=== PATIENT | female | born 1980 | race Caucasian/White ===

== ENCOUNTER 2019-05-23 08:36 | Emergency (ER) | payer MEDICAID ==
[~2019-05-23] VITALS: Ht 162.6 cm; Wt 86.2 kg
[2019-05-23 08:43] VITALS: BP 127/77
--- NOTE | 2019-05-23 09:03 | NUR ---
38 Y/O F C/O FEELING "WIERD" X 1 WEEK. PT STATED SHE MAY HAVE HAD A DRUG PUT IN HER DRINK AT WORK W/O HER KNOWLEDGE WHILE AT WORK. PT WOULD LIKE LAB WORK DONE TO SEE IF ANY DRUGS ARE IN HER SYSTERM. PT STATED A MILD GARCIA 06/23. PT DENIES THIS HAPPENING IN THE PAST. PT STATES A FEELING OF ANXIETY X 1 WEEK. PT POSITIONED FOR COMFORT. DEION
--- NOTE | 2019-05-23 09:13 | NUR ---
Dr. Blas is evaluating the patient at bedside.
--- NOTE | 2019-05-23 09:42 | NUR ---
SPONGE BUFFER AT BEDSIDE DRAWING ORDERED LAB WORK. UA COLLECTED TAKEN TO LAB FOR PROCESSING.
--- NOTE | 2019-05-23 09:42 | NUR ---
PHLEB at bedside for blood draw.
[2019-05-23 10:02] LABS: BASOPHILS % (AUTO) 0.2 % (0.0-2.0); EOSINOPHILS % (AUTO) 0.2 % (0.0-4.0); HEMATOCRIT 42.8 % (36-48); HEMOGLOBIN 14.5 g/dL (12.0-16.0); LYMPHOCYTES # (AUTO) 1.5 K/uL (2.5-16.5); LYMPHOCYTES % (AUTO) 14.8 % (20.5-51.1); MEAN CORPUSCULAR HEMOGLOBIN 30 pg (27-31); MEAN CORPUSCULAR HGB CONC 34 g/dL (33-37); MEAN CORPUSCULAR VOLUME 89.6 fL (80-94); MONOCYTES # (AUTO) 0.4 K/uL (0.8-1.0); MONOCYTES % (AUTO) 3.8 % (1.7-9.3); NEUTROPHILS # (AUTO) 8.2 K/uL (1.8-7.7); PLATELET COUNT (AUTO) 184 K/uL (140-450); RED BLOOD CELL COUNT(AUTO) 4.77 MIL/uL (4.20-5.40); RED CELL DISTRIBUTION WIDTH 13.2 % (11.6-13.7); WHITE BLOOD COUNT (AUTO) 10.1 K/uL (4.8-10.8)
[2019-05-23 10:07] LABS: APPEARANCE,URINE CLEAR (CLEAR); BILIRUBIN,URINE NEGATIVE (NEGATIVE); BLOOD, URINE 2+ (NEGATIVE); COLOR,URINE YELLOW (YELLOW); LEUKOCYTE ESTERASE ,URINE 1+ (NEGATIVE); NITRITE, URINE NEGATIVE (NEGATIVE); UGLUCOSE NEGATIVE (NEGATIVE)
--- NOTE | 2019-05-23 10:12 | NUR ---
PT AMBULATED TO RESTROOM W/O DIFFICULTY.
[2019-05-23 10:45] LABS: RBC,URINE 11-20 (MOD) /HPF (0-5); WBC,URINE 0-5 /HPF (0-5)
[2019-05-23 10:59] LABS: ANION GAP 14.4 (8-16); CARBON DIOXIDE 24.8 mmol/L (21-32); CREATININE 0.7 mg/dL (0.6-1.3); POTASSIUM 4.2 mmol/L (3.5-5.1)
[2019-05-23 11:13] LABS: ALBUMIN 3.8 g/dL (3.4-5.0); THYROID STIMULATING HORMONE 2.53 uIU/mL (0.34-3.74); TOTAL BILIRUBIN 0.7 mg/dL (0.0-1.0)
--- NOTE | 2019-05-23 11:21 | NUR ---
PT RESTING COMFORTABLY, VSS, INFORMED WAITING FOR TEST RESULTS.
[2019-05-23 11:26] VITALS: BP 130/76
--- NOTE | 2019-05-23 11:26 | NUR ---
DR FELIX AT BEDSIDE WITH PATIENT.
[2019-05-23 12:17] LABS: BARBITURATE, URINE NEG. ng/ml (NEG <=200); BENZODIAZEPINE, URINE NEG. ng/mL (NEG <=200); CANNABINOID, URINE NEG. ng/mL (NEG <=50); COCAINE, URINE NEG. ng/mL (NEG <=300); OPIATE, URINE NEG. ng/mL (NEG <=2000); PHENCYCLIDINE SCREEN,URINE NEG. ng/mL (NEG <=25)
== END 2019-05-23 11:27 | disposition home or self-care (01) ==
LOC: MED 08:36
DX: A08.4 Viral intestinal infection, unspecified (principal)
CPT/HCPCS: 36415; 80053; 80305; 81001; 81025; 82150; 83036; 83690; 84443; 85025; 87086; 99283